=== PATIENT | male | born 2000 | race African-American/Black ===

== ENCOUNTER 2024-05-08 04:15 | Emergency (ER) | payer OTHER ==
[~2024-05-08] VITALS: Ht 170.2 cm; Wt 65.8 kg
[2024-05-08 04:21] VITALS: BP 138/74; PULSE 88; RESP 16; TEMP 97.4; O2SAT 98
[2024-05-08] MEDS: NACL 0.9% 1,000 ML IV ONE (05:06)
[2024-05-08 05:08] VITALS: BP 138/74; PULSE 88; RESP 16; TEMP 97.4; O2SAT 98
== END 2024-05-08 06:20 | disposition home or self-care (01) ==
LOC: MED 04:15
DX: E86.0 Dehydration (principal); F12.90 Cannabis use, unspecified, uncomplicated; F17.210 Nicotine dependence, cigarettes, uncomplicated; Z88.6 Allergy status to analgesic agent
CPT/HCPCS: 71045; 96360; 99283; J7030